=== PATIENT | male | born 1995 | race Two or more races ===

== ENCOUNTER 2017-01-26 19:13 | Emergency (ER) | payer BC ==
--- NOTE | ~2017-01-26 | ER ---
PATIENT'S NAME: YANA WEEKS [facility] AGE: 21 Y [address] ROOM: [place] [address] LOCATION: [facility] ADMIT DATE: 01/26/2017 ER/Outpatient Report DISCHARGE DATE: 01/26/2017 FAMILY PHYSICIAN: PHYSICIAN, ZAHEER ATTENDING PHYSICIAN: Ximena Kelley Time of Arrival: 1917 hours. Time of Exam: 1917 hours. CHIEF COMPLAINT: Numbness of both arms. HISTORY OF PRESENT ILLNESS: The patient states approximately 2 hours ago he went to work out, did his normal weight lifting of his arms, after he was done and was driving home, he felt some numbness of both his arms, had some tingling that goes all the way down his arms into his fingers. He denies any injury while he was working out. Denies lifting more than what he has had done in the past. ALLERGIES: HE HAS NO KNOWN ALLERGIES. MEDICATIONS: He did take Ivermectin on Friday due to scabies. PAST MEDICAL HISTORY: Scabies. PAST SURGERIES: Negative. SOCIAL HISTORY: He smokes occasionally. Occasionally does marijuana, has not had any for the last 2 weeks. Drinks alcohol on weekends. REVIEW OF SYSTEMS: Negative other than those mentioned in the HPI. PHYSICAL EXAMINATION: VITAL SIGNS: He weighed 81.3 kg. Blood pressure is 153/98, pulse of 119, respirations 16, temperature of 98.8, and O2 saturation is 95% on room air. GENERAL: He is awake, alert, and oriented x4. SKIN: [place], warm, and dry. RESPIRATIONS: Even and nonlabored. Lung sounds are clear throughout. HEART: Regular rate and rhythm. PATIENT'S NAME: YANA WEEKS [facility] AGE: 21 Y [address] ROOM: [place] [address] LOCATION: [facility] ADMIT DATE: 01/26/2017 ER/Outpatient Report DISCHARGE DATE: 01/26/2017 FAMILY PHYSICIAN: PHYSICIAN, ZAHEER ATTENDING PHYSICIAN: Ximena Kelley MUSCULOSKELETAL: He has strong radial and ulnar pulses bilaterally. He has good hand grasps. He has good range of motion of both arms. No increased pain or discomfort of his arms with range of motion. LABORATORY DATA: CBC is within normal limits. Chem panel is within normal limits. As the patient was monitored here in the ER, he did report symptoms improved. He feels as though the tingling of his fingers is getting better. IMPRESSION: Numbness of his hands due to possible overactivity. PLAN: Home, rest, fluids. Follow up with his primary provider if symptoms persist or worsen. He verbalized understanding. SAEED RITTER APRN [employer]/vilma /[id number] d: 01/27/17 0056 t: 01/30/17 1547, OUTPATIENT REPORT
[2017-01-26 19:37] LABS: BASOPHIL % 0.4 %; EOSINOPHIL % 0.1 %; HEMATOCRIT 48.2 % (37.0-53.0); HEMOGLOBIN 16.7 g/dL (12.0-17.0); IMMATURE GRANULOCYTE % 0.5 %; LYMPHOCYTE % 11.4 %; MCHC 34.6 gm/dL (32.0-36.5); MCV 89.6 fl (83.0-98.0); MONOCYTE # 0.4 K/uL (0.0-1.0); MONOCYTE % 4.8 %; MPV 9.4 fl (9.4-12.4); NEUTROPHIL # (ANC) 7.1 K/uL (1.4-9.0); NEUTROPHIL % 82.8 %; NRBC % 0 /100WBC (0-0.00); PLATELET COUNT 277 K/uL (150-450); RBC 5.38 M/uL (4.00-6.00); RDW-CV 12.4 % (11.9-14.6); WBC 8.6 K/uL (4.0-11.0)
[2017-01-26 19:55] LABS: ALBUMIN 4.4 gm/dL (3.5-5.0); ANION GAP 12.1 (10.0-19.0); CALCIUM 9.3 mg/dL (8.5-10.5); CREATININE 1.3 mg/dL (0.6-1.3); POTASSIUM 4.1 mMol/L (3.7-5.1); TOTAL BILIRUBIN 0.7 mg/dL (0.0-1.5)
== END 2017-01-26 20:01 | disposition disaster alternative care site (69) ==
LOC: GMED 19:13
PROVIDERS: Nurse Practitioner Family
DX: R20.0 Anesthesia of skin (principal); F17.200 Nicotine dependence, unspecified, uncomplicated